=== PATIENT | female | born 1995 ===

== ENCOUNTER → 2018-12-27 | Outpatient (REF) | payer BC | LOC: M LAB LCGH 12:13 | PROVIDERS: ATTEND Obstetrics & Gynecology | DX: Z12.4 Encounter for screening for malignant neoplasm of cervix (principal) ==

== ENCOUNTER → 2019-04-12 | Outpatient (REF) | LOC: M LAB LCGH 09:54 | PROVIDERS: ATTEND Family Medicine | DX: O86.04 Sepsis following an obstetrical procedure (principal) ==

== ENCOUNTER → 2019-04-20 | Outpatient (REF) | LOC: M LAB LCGH 15:20 | PROVIDERS: ATTEND Obstetrics & Gynecology | DX: Z00.00 Encounter for general adult medical examination without abnormal findings (principal) ==